=== PATIENT | female | born 1960 | race Caucasian/White ===

== ENCOUNTER 2018-10-10 07:29 | Day surgery (SDC) | payer OTHER ==
[2018-10-10] MEDS: SOD CHLORIDE 0.9% 1,000 ML IV (09:00)
[2018-10-10] MEDS ORDERED: FENTAnyl 50 MCG/ML VIAL (10:24)
[2018-10-10] MEDS ORDERED: NEOMYC/POLYMYX/BACIT 30 GM OINT (10:27)
[2018-10-10] MEDS ORDERED: METOCLOPRAMIDE 10 MG INJ IV (10:30)
[2018-10-10] MEDS ORDERED: MEPERIDINE 25 MG INJ IV (10:30)
[2018-10-10] MEDS ORDERED: DIPHENHYDRAMINE 50 MG INJ IV (10:30)
[2018-10-10] MEDS ORDERED: HYDROmorphONE 1 MG/5 ML IV SYRINGE IV (10:30)
[2018-10-10] MEDS ORDERED: ALBUTEROL 0.083% (NEB) 2.5 MG/3 ML AMP HHN (10:30)
[2018-10-10] MEDS ORDERED: FENTAnyl 50 MCG/ML VIAL IV (10:30)
[2018-10-10] MEDS: CEFAZOLIN 2 GM/50 ML (PMX) 50 ML IVPB (10:36)
[2018-10-10] MEDS ORDERED: CEFAZOLIN 1 GM INJ ×2 (10:39→12:24)
[2018-10-10] MEDS ORDERED: SUCCINYLCHOLINE CHLORIDE 100 MG/5 ML SYG IV (10:39)
[2018-10-10] MEDS ORDERED: ROCURONIUM 50 MG INJ (10:39)
[2018-10-10] MEDS ORDERED: NEOSTIGMINE 10 MG INJ (10:39)
[2018-10-10] MEDS ORDERED: GLYCOPYRROLATE 0.4 MG INJ (10:39)
[2018-10-10] MEDS ORDERED: PROPOFOL 20 ML (10:39)
[2018-10-10] MEDS: BUPIVACAINE 0.25% (MPF) 30 ML INJ (10:44)
[2018-10-10] MEDS ORDERED: HYDROCODONE/APAP (5/325) TAB PO (11:30)
[2018-10-10] MEDS: ONDANSETRON 4 MG INJ IV (11:51)
[2018-10-10] MEDS: HYDROmorphONE 1 MG/5 ML IV SYRINGE IV (11:51)
[2018-10-10] MEDS: FENTAnyl 50 MCG/ML VIAL IV (11:59)
[2018-10-10] MEDS ORDERED: PHENYLephrine (100 MCG/ML) 5ML SYG (12:23)
== END 2018-10-10 13:05 | disposition home or self-care (01) ==
LOC: SDS 07:29
DX: L72.11 Pilar cyst (principal)
CPT/HCPCS: 14021; 88307; 90686

== ENCOUNTER 2018-12-05 09:46 | Day surgery (SDC) | payer OTHER ==
[2018-12-05] MEDS: CEFAZOLIN 2 GM/50 ML (PMX) 50 ML IVPB (06:00)
[~2018-12-05 09:46] MED LIST: ETOMIDATE 20 MG INJ
[2018-12-05] MEDS: SOD CHLORIDE 0.9% 1,000 ML IV (11:28)
[2018-12-05 11:31] LABS: ADD MAN DIFF? NO
[2018-12-05 11:52] LABS: PROTIME 13.3 Sec (11.9-14.9)
[2018-12-05 11:53] LABS: PARTIAL THROMBOPLASTIN TIME 29.8 Sec (23.0-35.0)
[2018-12-05 11:55] LABS: BASOPHILS % 0.7 % (0.0-2.0); EOSINOPHILS # 0.1 10^3/ul (0.0-0.5); EOSINOPHILS % 1.9 % (0.0-7.0); HEMATOCRIT 41.4 % (37.0-47.0); HEMOGLOBIN 13.4 g/dl (12.0-16.0); LYMPHOCYTES # 0.8 10^3/ul (0.8-2.9); LYMPHOCYTES % 18.3 % (15.0-51.0); MEAN CORPUSCULAR HEMOGLOBIN 29.6 pg (29.0-33.0); MEAN CORPUSCULAR HGB CONC 32.4 g/dl (32.0-37.0); MEAN CORPUSCULAR VOLUME 91.4 fl (82.0-101.0); MEAN PLATELET VOLUME 11.9 fl (7.4-10.4); MONOCYTE # 0.3 10^3/ul (0.3-0.9); MONOCYTES % 7.4 % (0.0-11.0); NEUTROPHILS % 71.5 % (39.0-77.0); PLATELET COUNT 144 10^3/UL (140-415); RED BLOOD COUNT 4.53 10^6/ul (4.20-5.40); RED CELL DISTRIBUTION WIDTH 13.2 % (11.5-14.5)
[2018-12-05 11:55] LABS: WHITE BLOOD COUNT 4.2 10^3/ul (4.8-10.8)
[2018-12-05 12:00] LABS: HOLD TRANSMISSIONS 1
[2018-12-05 12:09] LABS: ALANINE AMINOTRANSFERASE 20 IU/L (13-69); ALBUMIN 4.1 g/dl (3.3-4.9); ALBUMIN/GLOBULIN RATIO 1.36; ALKALINE PHOSPHATASE 69 IU/L (42-121); ANION GAP 6 (5-13); ASPARTATE AMINO TRANSFERASE 18 IU/L (15-46); BILIRUBIN,INDIRECT 0.6 mg/dl (0-1.1); BILIRUBIN,TOTAL 0.6 mg/dl (0.2-1.3); BLOOD UREA NITROGEN 14 mg/dl (7-20); CALCIUM 9.5 mg/dl (8.4-10.2); CARBON DIOXIDE 30 mmol/L (21-31); CHLORIDE 107 mmol/L (97-110); CREATININE 0.54 mg/dl (0.44-1.00); Estimated GFR > 60 mL/min (>60); GLUCOSE 96 mg/dl (70-220); POTASSIUM 4.1 mmol/L (3.5-5.1); SODIUM 143 mmol/L (135-144); TOTAL PROTEIN 7.1 g/dl (6.1-8.1)
[2018-12-05] MEDS ORDERED: FENTAnyl 50 MCG/ML VIAL (12:12)
[2018-12-05] MEDS ORDERED: MIDAZOLAM 1 MG/ML 2 ML INJ (12:12)
[2018-12-05] MEDS: BUPIVACAINE 0.5% (SDV) 30 ML INJ (12:41)
[2018-12-05] MEDS ORDERED: NEOMYC/POLYMYX/BACIT 30 GM OINT (12:41)
[2018-12-05] MEDS ORDERED: LIDOCAINE 2% (SDV) 5 ML INJ (12:54)
[2018-12-05] MEDS ORDERED: PROPOFOL 20 ML (12:54)
[2018-12-05] MEDS ORDERED: CEFAZOLIN 1 GM INJ (12:54)
[2018-12-05] MEDS ORDERED: ONDANSETRON 4 MG INJ (12:55)
[2018-12-05] MEDS: ONDANSETRON 4 MG INJ IV (13:22)
[2018-12-05] MEDS: HYDROCODONE/APAP (5/325) TAB PO (13:27)
[2018-12-05] MEDS ORDERED: DIPHENHYDRAMINE 50 MG INJ IV (13:30)
[2018-12-05] MEDS ORDERED: FENTAnyl 50 MCG/ML VIAL IV (13:30)
[2018-12-05] MEDS ORDERED: METOCLOPRAMIDE 10 MG INJ IV (13:30)
[2018-12-05] MEDS ORDERED: HYDROmorphONE 1 MG/5 ML IV SYRINGE IV ×2 (13:30)
[2018-12-05] MEDS ORDERED: MEPERIDINE 25 MG INJ IV (13:30)
== END 2018-12-05 16:03 | disposition home or self-care (01) ==
LOC: SDS 09:46
DX: L72.11 Pilar cyst (principal); L57.8 Other skin changes due to chronic exposure to nonionizing radiation
CPT/HCPCS: 14021; 80053; 85025; 85610; 85730; 88307